=== PATIENT | female | born 1985 | race Hispanic/Latino ===

== ENCOUNTER 2019-10-22 23:19 | Observation (INO) | payer MEDICAID, OTHER ==
[2019-10-22] MEDS ORDERED: SODIUM CHLORIDE 0.9% 1000ML 1,000 ML IV ONE (23:50)
[2019-10-22] MEDS ORDERED: LORAZEPAM 2 MG/ML 1 ML VIAL ONE (23:57)
[2019-10-23] VITALS (23 sets, daily range): BP systolic 108–141; BP diastolic 51–85
[2019-10-23] LABS: BASOPHILS % (AUTO) 0.3 % (0.0-5.0); EOSINOPHILS % (AUTO) 1.5 % (0.0-8.0); HEMATOCRIT 31.6 % (36-48); LYMPHOCYTES % (AUTO) 16.8 % (21.0-51.0); MEAN CORPUSCULAR HEMOGLOBIN 28.4 pg (27.0-33.0); MEAN CORPUSCULAR HGB CONC 32.9 g/dL (32.0-36.0); MEAN CORPUSCULAR VOLUME 86.3 fL (79-99); NEUTROPHILS % (AUTO) 76.9 % (40.0-77.0); PLATELET COUNT (AUTO) 241 K/uL (130-400); RED BLOOD CELL COUNT(AUTO) 3.66 MIL/uL (4.00-5.50); RED CELL DISTRIBUTION WIDTH 13.5 % (11.0-15.5); WHITE BLOOD COUNT (AUTO) 14.9 K/uL (4.8-10.8)
[2019-10-23 00:08] LABS: CREATININE 0.5 mg/dL (0.5-1.5); POTASSIUM 3.5 mmol/L (3.5-5.1)
[2019-10-23] MEDS ORDERED: SODIUM CHLORIDE 0.9% 1000ML 1,000 ML IV ONE ×3 (00:11→02:50)
[2019-10-23] MEDS ORDERED: SODIUM CHLORIDE 0.9% 50 ML IV ONE (00:12)
[2019-10-23] MEDS ORDERED: CEFTRIAXONE SODIUM 1 GM ONE (00:12)
[2019-10-23 00:19] LABS: ALBUMIN 3.1 g/dL (3.5-5.0); BILIRUBIN,TOTAL 0.2 mg/dL (0.2-1.0); TOTAL PROTEIN, SERUM 6.9 g/dL (6.0-8.3)
[2019-10-23 00:22] LABS: BILIRUBIN,URINE Negative (NEGATIVE); COLOR,URINE Dark Yellow (YELLOW); GLUCOSE, URINE (UA) Negative (NEGATIVE); KETONES,URINE Negative (NEGATIVE); LEUKOCYTE ESTERASE ,URINE Negative (NEGATIVE); NITRATE,URINE Negative (NEGATIVE); OCCULT BLOOD,URINE Moderate (NEGATIVE); PROTEIN,URINE POS 1+ mg/dL (NEGATIVE)
[2019-10-23 00:23] LABS: APPEARANCE,URINE SLIGHTLY CLOUDY (CLEAR)
[2019-10-23 00:26] LABS: BACTERIA,URINE None Seen /HPF (None Seen); MUCUS,URINE Moderate LPF (None Seen); SQUAMOUS EPITHELIAL CELL,UR Few /HPF (0-2); WBC,URINE None Seen /HPF (0-1)
[2019-10-23 00:27] LABS: INR 0.95 (0.85-1.15)
[2019-10-23] MEDS ORDERED: SODIUM CHLORIDE 0.9% 250 ML IV ONE (02:29)
[2019-10-23] MEDS ORDERED: NOREPINEPHRINE BITARTRATE 1 MG/1 ML ML IV ONE (02:29)
[2019-10-23 02:45] LABS: BASOPHILS % (AUTO) 0.2 % (0.0-5.0); EOSINOPHILS % (AUTO) 0.2 % (0.0-8.0); HEMATOCRIT 21.7 % (36-48); LYMPHOCYTES % (AUTO) 11.9 % (21.0-51.0); MEAN CORPUSCULAR HEMOGLOBIN 28.3 pg (27.0-33.0); MEAN CORPUSCULAR HGB CONC 32.3 g/dL (32.0-36.0); MEAN CORPUSCULAR VOLUME 87.9 fL (79-99); MONOCYTES % (AUTO) 2.8 % (3.0-13.0); NEUTROPHILS % (AUTO) 84.2 % (40.0-77.0); PLATELET COUNT (AUTO) 229 K/uL (130-400); RED BLOOD CELL COUNT(AUTO) 2.47 MIL/uL (4.00-5.50); RED CELL DISTRIBUTION WIDTH 13.9 % (11.0-15.5); WHITE BLOOD COUNT (AUTO) 20.8 K/uL (4.8-10.8)
[2019-10-23] MEDS ORDERED: KETAMINE 50MG/ML SYRINGE 50 MG/ML DISP.SYRIN IV ONE (03:32)
[2019-10-23] MEDS ORDERED: ALBUMIN (HUMAN) 5% 250 ML IV ONE (03:33)
[2019-10-23] MEDS ORDERED: MIDAZOLAM HCL 1 MG/ML 2ML VIAL ONE (03:35)
[2019-10-23] MEDS ORDERED: ROCURONIUM 10MG/1ML SYR 10 MG/ML ML ONE (03:45)
[2019-10-23] MEDS ORDERED: LIDOCAINE PF 2% 5ML ABBOJECT ONE (03:52)
[2019-10-23] MEDS ORDERED: SUCCINYLCHOLINE 200MG/10ML SYR ONE (03:52)
[2019-10-23] MEDS ORDERED: ONDANSETRON HCL 4 MG/2 ML VIAL ONE (03:52)
[2019-10-23] MEDS ORDERED: OXYTOCIN 10 USP UNITS/ML ONE ×2 (03:54→03:55)
[2019-10-23] MEDS ORDERED: CEFAZOLIN SODIUM 1 GM VIAL ONE (03:56)
[2019-10-23] MEDS ORDERED: METHYLERGONOVINE MALEATE 0.2 MG/1 ML ML ONE (03:57)
[2019-10-23] MEDS ORDERED: ESMOLOL HCL 10 MG/ML 10 ML VIAL ONE (04:01)
[2019-10-23] MEDS ORDERED: GLYCOPYRROLATE 1 MG/5 ML SYRINGE ONE (04:11)
[2019-10-23] MEDS ORDERED: NEOSTIGMINE 5MG/5ML SYR IV ONE (04:12)
[2019-10-23] MEDS ORDERED: ACETAMINOPHEN-CODEINE 300/30MG TAB PO PRN (04:45)
[2019-10-23] MEDS ORDERED: MEPERIDINE-PF 75 MG/ML SYG IM PRN (04:45)
[2019-10-23] MEDS ORDERED: PROMETHAZINE HCL 25 MG/ML 1ML AMPULE IM PRN ×2 (04:45)
[2019-10-23] MEDS ORDERED: SODIUM CHLORIDE 0.9% 1000ML 1,000 ML IV SCH (04:45)
[2019-10-23 06:48] LABS: HEMATOCRIT 30.9 % (36-48)
--- NOTE | 2019-10-23 07:20 | NUR ---
DR. JUAREZ CALLED RE PATIENT'S LACTIC ACID ELEVATED RESULT AND NO NEW ORDERS GIVEN. DR. JUAREZ INDICATED WOULD BE COMING IN SOON TO SEE PATIENT. NO NEW ORDERS GIVEN.
[2019-10-23] MEDS ORDERED: PREN-154 PO (08:17)
[2019-10-23] MEDS ORDERED: IBUPROFEN 800 MG TAB PO PRN (08:30)
--- NOTE | 2019-10-23 12:00 | NUR ---
DISCHARGE INSTRUCTIONS GIVEN AND PATIENT VERBALIZED UNDERSTANDING INSTRUCTIONS GIVEN. SCRIPT FOR IRON GIVEN AND INSTRUCTED ON DOSAGE AND FREQUENCY.
--- NOTE | 2019-10-23 13:00 | NUR ---
PATIENT WAS TAKEN VIA W/C TO FAMILY VEHICLE AND WAS DISCHARGED TO SPOUSE IN STABLE CONDITION. PATIENT DENIES ANY DIZZINESS ON AMBULATING AND HAS REMAINED AFEBRILE.
== END 2019-10-23 13:00 | disposition home or self-care (01) ==
LOC: EDH 23:19 → EDHIP 23:20 → WSH 10-23 05:55
PROVIDERS: ADMIT Specialist; ATTEND Specialist
DX: O03.1 Delayed or excessive hemorrhage following incomplete spontaneous abortion (principal); I11.9 Hypertensive heart disease without heart failure; E11.9 Type 2 diabetes mellitus without complications; I95.9 Hypotension, unspecified; D64.9 Anemia, unspecified; Z79.899 Other long term (current) drug therapy
CPT/HCPCS: 36415 ×2; 36430; 59812; 76801; 80053; 81001; 83605 ×2; 84702; 85014; 85018; 85025 ×2; 85610; 85730; 86850; 86900; 86901; 86922 ×5; 87040 ×2; 93005 ×2; 99291; A4351; A4600; G0378 ×10; J0330; J0690; J0696; J2001; J2210; J2250; J2405; J2590 ×2; J2710; J3490 ×4; J7030 ×5; P9016 ×2; P9045; 88305; J2060